=== PATIENT | male | born 1995 | race Caucasian/White ===

== ENCOUNTER 2021-05-27 21:31 | Emergency (ER) | payer SELFPAY ==
[~2021-05-27] VITALS: Ht 185.4 cm; Wt 88.9 kg
[2021-05-27 21:40] VITALS: BP 150/70
--- NOTE | 2021-05-27 21:43 | NUR ---
TO LOBBY A/W BED AMBULATORY
--- NOTE | 2021-05-28 00:48 | NUR ---
To ED bed 01
--- NOTE | 2021-05-28 01:25 | NUR ---
SEE PATIENT ASSESSMENT FOR MORE INFORMATION. PATIENT SITTING IN BED LOCKED IN LOWEST POSITION X1 SIDERAIL UP. BREATHING EVEN AND UNLABORED. NAD NOTED, WILL CONTINUE TO MONITOR.
[2021-05-28] MEDS ORDERED: IBUP-2213 PO (01:26)
[2021-05-28] MEDS ORDERED: BACITRACIN OINT 500 UNITS/GM PKT TP ONE ×2 (01:27→02:00)
[2021-05-28] MEDS ORDERED: IBUPROFEN 600 MG TAB ONE (01:45)
[2021-05-28] MEDS ORDERED: IBUPROFEN 600 MG TAB PO ONE (02:00)
[2021-05-28 02:45] VITALS: BP 148/88
== END 2021-05-28 02:45 | disposition home or self-care (01) ==
LOC: MED 21:31
DX: S42.031A Displaced fracture of lateral end of right clavicle, initial encounter for closed fracture (principal); Z79.899 Other long term (current) drug therapy; Z88.8 Allergy status to other drugs, medicaments and biological substances; V29.9XXA Motorcycle rider (driver) (passenger) injured in unspecified traffic accident, initial encounter; Y93.89 Activity, other specified; Y92.89 Other specified places as the place of occurrence of the external cause; Y99.8 Other external cause status
CPT/HCPCS: 73030; 73610; 90471; 90715; 99284